=== PATIENT | female | born 2000 | race Caucasian/White ===

== ENCOUNTER 2024-05-19 00:06 | Emergency (ER) | payer SELFPAY ==
[2024-05-19] MEDS ORDERED: PNVTAB4 PO (00:27)
== END 2024-05-19 00:29 | disposition admitted as inpatient to this hospital (09) ==
LOC: M ED 00:06
DX: Z53.21 Procedure and treatment not carried out due to patient leaving prior to being seen by health care provider (principal)

== ENCOUNTER 2024-05-19 00:17 | Outpatient (CLI) ==
[~2024-05-19] VITALS: Ht 157.5 cm; Wt 81.9 kg
[2024-05-19] MEDS ORDERED: PNVTAB4 PO (00:27)
[2024-05-19 00:40] VITALS: BP 115/63
[2024-05-19 02:13] LABS: KETONE, URINE AUTO RFX NEGATIVE (NEGATIVE); MUCUS, URINE RFX SMALL (NEGATIVE); NITRITE, URINE AUTO RFX NEGATIVE (NEGATIVE); RBC, URINE AUTO RFX 1 /HPF (0-3); SQUAM EPITHELIAL CELL UR AURFX 1 /HPF (0-6)
[2024-05-19 02:18] VITALS: BP 120/57
[2024-05-19 02:23] LABS: LEUKOCYTE ESTERASE UR AUTO RFX TRACE (NEGATIVE); WBC, URINE AUTO RFX 19 /HPF (0-3)
== END 2024-05-19 02:18 | disposition home or self-care (01) ==
LOC: M LDO 00:17
PROVIDERS: ATTEND Advanced Practice Midwife
DX: O26.892 Other specified pregnancy related conditions, second trimester (principal); O21.0 Mild hyperemesis gravidarum; N89.8 Other specified noninflammatory disorders of vagina; R19.7 Diarrhea, unspecified; Z86.19 Personal history of other infectious and parasitic diseases; Z87.891 Personal history of nicotine dependence; Z3A.24 24 weeks gestation of pregnancy
CPT/HCPCS: 59025; 81001; 87070; 87077; 87086; 87186; G0463